=== PATIENT | female | born 1975 | race Hispanic/Latino ===

== ENCOUNTER 2024-11-10 06:26 | Day surgery (SDC) | payer BC ==
--- NOTE | 2024-11-08 08:50 | EKG ---
[facility] Test Date: 2024-11-08 Test Time: 08:46:51 Pat Name: SAURABH GREGG Department: [facility] Room: Gender: F Optical Lab Technician: [id number] : 1975 Requested By: MARIANELA DENNIS Order Number: [id number] Reading MD: Francisco Javier Roberts Measurements Intervals Lawrence Rate: 70 P: 52 MN: 134 QRS: 33 QRSD: 84 T: 15 QT: 412 QTc: 444 Interpretive Statements Normal sinus rhythm No previous ECG available for comparison Electronically Signed On 11-09-2024 10:37:38 CDT by Francisco Javier Roberts Please click the below link to view image of tracing.
[2024-11-08 09:03] LABS: BASOPHILS # (AUTO) 0.02 K/uL (0.00-0.20); BASOPHILS % (AUTO) 0.3 % (0.0-5.0); EOSINOPHILS # (AUTO) 0.07 K/uL (0.00-0.70); EOSINOPHILS % (AUTO) 1.1 % (0.0-8.0); IMMATURE GRANULOCYTE ABSOLUTE 0.02 K/uL (0-1); LYMPHOCYTES # (AUTO) 1.4 K/uL (1.0-4.8); LYMPHOCYTES % (AUTO) 21.5 % (21.0-51.0); MEAN CORPUSCULAR HEMOGLOBIN 27.8 pg (27.0-33.0); MEAN CORPUSCULAR HGB CONC 31.5 g/dL (32.0-36.0); MEAN CORPUSCULAR VOLUME 88.3 fL (79-99); MONOCYTES # (AUTO) 0.5 K/uL (0.1-1.0); MONOCYTES % (AUTO) 8.2 % (3.0-13.0); NEUTROPHILS # (AUTO) 4.6 K/uL (1.8-7.7); NEUTROPHILS % (AUTO) 68.6 % (40.0-77.0); PLATELET COUNT (AUTO) 240 K/uL (130-400); RED BLOOD CELL COUNT(AUTO) 5.21 MIL/uL (4.00-5.50); RED CELL DISTRIBUTION WIDTH 14.4 % (11.0-15.5); WHITE BLOOD COUNT (AUTO) 6.6 K/uL (4.8-10.8)
[2024-11-08 09:05] LABS: CREATININE 0.6 mg/dL (0.5-1.0)
[2024-11-08 09:09] LABS: INR 0.95 (0.85-1.15); PROTHROMBIN TIME 10.1 SEC (9.6-11.6)
[2024-11-08 09:10] LABS: PARTIAL THROMBOPLASTIN TIME 32.1 SEC (26.3-35.5)
[2024-11-08 09:14] VITALS: BP 110/66; PULSE 71; RESP 17; TEMP 97.9
[~2024-11-10] VITALS: Ht 152.4 cm; Wt 59.8 kg
[2024-11-10] VITALS (16 sets, daily range): BP systolic 109–137; BP diastolic 63–78; PULSE 69–95; RESP 14–20; TEMP 97–97.3
[2024-11-10] MEDS ORDERED: ceFAZolin SODIUM 2 GM VIAL ONE (06:49)
[2024-11-10] MEDS ORDERED: metRONIDazole 500MG/100ML BAG 0 ML ONE (06:49)
[2024-11-10] MEDS ORDERED: acetaMINOPHEN 100 ML ONE (07:14)
[2024-11-10] MEDS ORDERED: FAMOTIDINE 20MG VIAL IV ONE (07:14)
[2024-11-10] MEDS ORDERED: GABAPENTIN 300 MG CAPSULE ONE (07:14)
[2024-11-10] MEDS ORDERED: LIDOCAINE PF 100MG/5ML (2%) SYRINGE 5ML ONE (07:29)
[2024-11-10] MEDS ORDERED: proPOFol 10 MG/ML 20ML VIAL IV ONE (07:29)
[2024-11-10] MEDS ORDERED: FENTanyl CITRate PF 50 MCG/1 ML 2ML VIAL ONE (07:30)
[2024-11-10] MEDS ORDERED: rocuRONium bROMide 10MG/1ML 5ML VL ONE (07:30)
[2024-11-10] MEDS ORDERED: ketaMINE 50MG/ML SYRINGE 50 MG/ML DISP.SYRIN ONE (07:31)
[2024-11-10] MEDS ORDERED: INDOCYANINE GREEN 25 MG VIAL IJ ONE (08:01)
[2024-11-10] MEDS ORDERED: ondanSETRON 4MG INJ ONE (08:13)
[2024-11-10] MEDS ORDERED: dexaMETHasone SOD PHOSPHATE 10MG/ML 1ML VIAL ONE (08:13)
[2024-11-10] MEDS: ceFAZolin SODIUM 2 GM VIAL IVPB ONE ×2 (08:15)
[2024-11-10] MEDS ORDERED: GLYCOPYRROLATE 0.2 MG/ML 5 ML VIAL ONE (08:37)
[2024-11-10] MEDS ORDERED: NEOSTIGMINE METHYLSULFATE 1MG/ML IV ONE (08:38)
[2024-11-10] MEDS ORDERED: SUGAMMADEX SODIUM 200 MG/2 ML VIAL IV ONE (09:20)
--- NOTE | 2024-11-10 09:33 | OP ---
Operative Note: DATE OF PROCEDURE: 11/10/24 SURGEON: MARIANELA DENNIS MD BUNDLE WRAPPER: [facility] operative nursing and technicians ANESTHESIA: General and local ANESTHESIOLOGIST/MEDIA PROFESSIONAL: [facility] anesthesia team PREOPERATIVE DIAGNOSIS: Biliary dyskinesia POSTOPERATIVE DIAGNOSIS: As above SYNOPSIS: Cholecystectomy with IC green cholangiogram performed. PROCEDURE: Robotic assisted cholecystectomy with IC green intraoperative cholangiogram ESTIMATED BLOOD LOSS: Minimal, less than 10 cc INDICATIONS: As above DESCRIPTION OF PROCEDURE: After standard precautions and preparations were undertaken a Veress needle and optical trocar were used to enter the abdominal cavity. All other instruments were placed under direct vision. The robotic system was docked in the standard fashion. After retracting the fundus of the gallbladder cephalad careful dissection was undertaken in the area of the infundibulum. We are able to achieve a critical view of safety and identified a single ductal structure and a single vascular structure entering the infundibulum. This was confirmed by use of IC-Green and firefly visual technology which allowed us to visualize the duct and the entire ductal system directly. There were no signs of any filling defects. We clipped and divided both structures and removed the gallbladder from its attachments of the gallbladder fossa. The specimen was removed via an Endo-Catch bag through one of our right sided trocars. All instrument counts were verified as correct prior to ending the case including needles and sponges. MARIANELA DENNIS MD Nov 10, 2024 09:33
[2024-11-10] MEDS: FENTanyl CITRate PF 50 MCG/1 ML 2ML VIAL ONE (09:44)
[2024-11-10] MEDS: metoCLOPRAmide 10 MG/2 ML VIAL ONE (10:28)
== END 2024-11-10 12:00 | disposition home or self-care (01) ==
LOC: DAH 06:26
PROVIDERS: ATTEND Surgery
DX: K81.1 Chronic cholecystitis (principal); K82.8 Other specified diseases of gallbladder; F41.9 Anxiety disorder, unspecified; F32.A Depression, unspecified; R14.0 Abdominal distension (gaseous); Z79.01 Long term (current) use of anticoagulants; Z79.899 Other long term (current) drug therapy; Z98.890 Other specified postprocedural states
CPT/HCPCS: 80048; 84703; 85025; 85610; 85730; 86850; 86900; 86901; 86156; 86870; 36415; 93005; 47563; 88304; A6260; A4663; J7030; A4215 ×2; J3490 ×4; J3010 ×2; J1100; J0665; J2003; J2704; J2405; J2710; J2765; J0690 ×2; A4930; A4213; A4222; A4221; A4216; A4223 ×2; A4600; S2900